=== PATIENT | female | born 1950 | race Caucasian/White ===

== ENCOUNTER 2017-07-01 14:21 | Observation (INO) | payer MEDICARE, OTHER ==
[~2017-07-01] VITALS: Ht 167.6 cm; Wt 77.1 kg
[~2017-07-01 14:21] MED LIST: ALBUPOW26 XX; FLUT100M7 IN; HYDR12.56 PO; LISI-646 PO; LORA-655 PO; MULT-574 OR; POTA80TA OR
[2017-07-01 15:12] LABS: Hematocrit 33.4 % (36.0-46.0); Hemoglobin 11.1 g/dL (12.2-16.2); Mean Corpuscular Hemoglobin 31.1 pg (28.0-32.0); Mean Corpuscular Hgb Conc. 33.2 g/dL (32.0-36.0); Mean Corpuscular Volume 93.5 fL (80.0-100.0); Mean Platelet Volume 7.2 fL (6.9-10.8); Platelet Count (auto) 305 10^3/uL (140-450); Red Cell Distribution Width 14.9 % (11.8-14.3); White Blood Cell 15.4 10^3/uL (4.4-10.8)
[2017-07-01 15:19] LABS: Metamyelocytes % 0; Myelocytes % 0; Promyelocytes % 0; Reactive Lymphocytes 0
[2017-07-01 15:33] LABS: Platelet Estimate Adequate; Stomatocytes Few
[2017-07-01 15:35] LABS: Albumin 2.8 g/dL (3.4-5.0); BUN/Creatinine Ratio 12.5; Bilirubin, Total 0.4 mg/dL (0.2-1.0); Calcium 8.7 mg/dL (8.5-10.1); Potassium 3.2 mmol/L (3.5-5.1); Total Protein 6.6 g/dL (6.4-8.2)
[2017-07-01 15:36] LABS: Partial Thromboplastin Time 28.2 sec (22.64-33.71); Prothrombin Time 10.9 sec (9.37-12.3)
[2017-07-01 15:57] LABS: Magnesium 1.5 mg/dL (1.6-2.6)
[2017-07-01 16:15] LABS: B-Type Natriuretic Peptide 160.58 pg/mL (0-100); Temperature: 23.3 C (20.0-25.0)
[2017-07-01] MEDS ORDERED: POTASSIUM CHL 20 Meq TABLET PO ONE (17:00)
[2017-07-01] MEDS ORDERED: cefTRIAXone 1GM/50ML D5W 50 ML IV ONE (17:00)
[2017-07-01] MEDS: MAGNESIUM SULFATE 1GM/100ML 100 ML IV SCH ×2 (18:00→21:20)
[2017-07-01 19:36] LABS: Urine Bilirubin Negative (Negative); Urine Blood Negative /uL (Negative); Urine Color Yellow (Yellow); Urine Glucose Normal (Normal); Urine Ketone Negative (Negative); Urine Nitrite Negative (Negative); Urine RBC 1 /hpf (0 - 4); Urine Urobilinogen Normal (Negative); Urine pH 6.5 (5.0-8.0)
[2017-07-01] MEDS ORDERED: IPRATROPIUM BROM 0.5 MG/2.5ML INH SOL NEB ONE (21:00)
[2017-07-01] MEDS ORDERED: ALBUTEROL SULF 2.5 MG/0.5ML(0.5%) NEB SOLN NEB ONE (21:00)
[2017-07-02] MEDS ORDERED: IPRATROPIUM BROM 0.5 MG/2.5ML INH SOL NEB ONE (02:30)
[2017-07-02] MEDS ORDERED: ALBUTEROL SULF 2.5 MG/0.5ML(0.5%) NEB SOLN NEB ONE (02:30)
[2017-07-02 03:25] VITALS: BP 125/69
== END 2017-07-02 03:20 | disposition home or self-care (01) | DRG 191 ==
LOC: ER 14:21 → OVERFLOW 15:11 → ER 07-02 03:20
PROVIDERS: ADMIT Family Medicine; ATTEND Family Medicine
DX: J44.1 Chronic obstructive pulmonary disease with (acute) exacerbation (principal); I50.42 Chronic combined systolic (congestive) and diastolic (congestive) heart failure; I11.0 Hypertensive heart disease with heart failure; E83.42 Hypomagnesemia; E87.6 Hypokalemia; F17.210 Nicotine dependence, cigarettes, uncomplicated; Z82.3 Family history of stroke; Z82.49 Family history of ischemic heart disease and other diseases of the circulatory system; Z83.3 Family history of diabetes mellitus; Z85.118 Personal history of other malignant neoplasm of bronchus and lung; Z92.21 Personal history of antineoplastic chemotherapy; Z92.3 Personal history of irradiation
CPT/HCPCS: 36415; 71020; 80053; 81001; 83605; 83735; 83880; 84484; 85007; 85027; 85610; 85730; 87040; 93005; 94640; 96365; 96366; 96367; 96368; 99285; G0378; J0696; J3475